=== PATIENT | male | born 1950 | race Two or more races ===

== ENCOUNTER 2021-01-09 14:59 | Emergency (ER) | payer MEDICARE, OTHER ==
[~2021-01-09] VITALS: Ht 165.1 cm; Wt 59.9 kg
[2021-01-09] MEDS ORDERED: SODIUM CHLORIDE 0.9% 500 ML IV ONE (15:30)
[2021-01-09 16:14] LABS: Basophils # (auto) 0.1 10 ^3/uL (0-0.2); Basophils % (auto) 1.6 % (0.0-2.0); Eosinophils # (auto) 0.4 10 ^3/uL (0-0.8); Eosinophils % (auto) 4.8 % (0.0-7.0); Hematocrit 30.6 % (41.0-53.0); Hemoglobin 9.8 g/dL (13.5-17.5); Lymphocytes # (auto) 1.2 10 ^3/uL (0.4-5.4); Lymphocytes % (auto) 16.8 % (10.0-50.0); Mean Corpuscular Hemoglobin 28.8 pg (28.0-32.0); Mean Corpuscular Hgb Conc. 31.9 g/dL (32.0-36.0); Mean Corpuscular Volume 90.3 fL (80.0-100.0); Monocytes # (auto) 0.7 10 ^3/uL (0-1.3); Monocytes % (auto) 10.1 % (0.0-12.0); Neutrophils # (auto) 4.9 10 ^3/uL (1.6-8.6); Neutrophils % (auto) 66.7 % (37.0-80.0); Nucleated Red Blood Cells % 0.1 %; Red Blood Cells 3.39 10^6/uL (4.5-5.90); Red Cell Distribution Width 17.6 % (11.8-14.3); White Blood Cell 7.4 10^3/uL (4.4-10.8)
[2021-01-09 16:22] LABS: Albumin 3.5 g/dL (3.4-5.0); Calcium 8.7 mg/dL (8.5-10.1); Potassium 3.8 mmol/L (3.5-5.1)
[2021-01-09 16:25] LABS: BUN/Creatinine Ratio 15.8; Bilirubin, Total 0.2 mg/dL (0.2-1.0); Total Protein 7.7 g/dL (6.4-8.2)
[2021-01-09 23:13] VITALS: BP 161/77
[2021-01-09] MEDS ORDERED: cloNIDine HCL 0.1 MG TAB PO ONE (23:15)
== END 2021-01-09 23:51 | disposition home or self-care (01) ==
LOC: ER 14:59
DX: D64.9 Anemia, unspecified (principal); R53.1 Weakness; I10 Essential (primary) hypertension; F12.10 Cannabis abuse, uncomplicated; Z20.822 Contact with and (suspected) exposure to COVID-19
CPT/HCPCS: 36415; 71045; 80053; 84484; 85025; 87426; 93005

== ENCOUNTER 2021-09-07 14:11 | Inpatient (IN) | payer MEDICARE ==
[~2021-09-07] VITALS: Ht 167.6 cm; Wt 61.6 kg
[2021-09-07 16:39] LABS: Basophils # (auto) 0.2 10 ^3/uL (0-0.2); Eosinophils # (auto) 0.2 10 ^3/uL (0-0.8); Mean Corpuscular Hemoglobin 25.5 pg (28.0-32.0); Mean Corpuscular Hgb Conc. 30.7 g/dL (32.0-36.0); Neutrophils # (auto) 12.9 10 ^3/uL (1.6-8.6); Neutrophils % (auto) 89.3 % (37.0-80.0)
[2021-09-07 16:41] LABS: Basophils % (auto) 1.2 % (0.0-2.0); Eosinophils % (auto) 1.2 % (0.0-7.0); Lymphocytes # (auto) 0.5 10 ^3/uL (0.4-5.4); Lymphocytes % (auto) 3.8 % (10.0-50.0); Monocytes # (auto) 0.7 10 ^3/uL (0-1.3); Monocytes % (auto) 4.5 % (0.0-12.0); Red Blood Cells 4.33 10^6/uL (4.5-5.90); Red Cell Distribution Width 21.2 % (11.8-14.3); White Blood Cell 14.4 10^3/uL (4.4-10.8)
[2021-09-07 16:52] LABS: INR 0.98 (0.9-1.15); Partial Thromboplastin Time 28.2 sec (24.6-33.4)
[2021-09-07 16:55] LABS: Albumin 3.6 g/dL (3.4-5.0); Anion Gap 7 (5-15); Blood Alcohol < 3.0 mg/dL (0-5); Blood Urea Nitrogen 27 mg/dL (7-18); Carbon Dioxide 24 mmol/L (21-32); Chloride 114 mmol/L (98-107); Glucose 128 mg/dL (74-106); Sodium 145 mmol/L (136-145)
[2021-09-07 16:58] LABS: Alanine Aminotransferase 12 U/L (16-61); Alkaline Phosphatase 203 U/L (45-117); Aspartate Aminotransferase 22 U/L (15-37); BUN/Creatinine Ratio 21.1; Bilirubin, Total 0.3 mg/dL (0.2-1.0); GFR African American 71 mL/min; GFR Non-African American 59 mL/min; Total Protein 7.9 g/dL (6.4-8.2)
[2021-09-07] MEDS ORDERED: CLOPIDOGREL BISULFATE 75 MG TAB PO ONE (17:30)
[2021-09-07] MEDS ORDERED: ENOXAPARIN SOD 60 MG/0.6 ML SYRINGE SC ONE (18:45)
[2021-09-07] MEDS ORDERED: LORazepam 2MG/ML-1ML VIAL IV PRN (21:15)
[2021-09-07 21:38] LABS: Cholesterol 177 mg/dL (< 200)
[2021-09-07 21:40] LABS: HDL Cholesterol 46 mg/dL (40-59); LDL Cholesterol 113 mg/dL (< 100); Triglycerides 177 mg/dL (< 150)
[2021-09-07 21:44] LABS: Folate (Folic Acid) 16.43 ng/mL (5.38-24)
[2021-09-07] MEDS ORDERED: ACETAMINOPHEN 325 MG TAB PO PRN (22:15)
[2021-09-07] MEDS ORDERED: DEXTROSE (50%) 50ML SYRG IV PRN (22:15)
[2021-09-07] MEDS ORDERED: ONDANSETRON HCL 4 MG/2 ML VIAL IV PRN (22:15)
[2021-09-07] MEDS ORDERED: NITROGLYCERIN 0.4 MG SL TAB SL PRN (23:45)
[2021-09-07] MEDS ORDERED: MORPHINE SULFATE INJ 2 MG/ml SYRG IV PRN (23:45)
[2021-09-07] MEDS: SODIUM CHLORIDE 0.9% 1,000 ML IV SCH (23:59)
[2021-09-08] MEDS ORDERED: amLODIPine BESYLATE 5 MG TAB PO ONE (02:30)
[2021-09-08] MEDS ORDERED: hydrALAZINE HCL 20 MG/ML VL IV PRN (02:30)
[2021-09-08] MEDS ORDERED: AZITHROMYCIN 500MG/ 250ML 250 ML IV ONE (02:30)
[2021-09-08 03:30] VITALS: BP 160/90
[2021-09-08] MEDS: HYDROcodone-ACET 5/325MG TAB PO PRN ×3 (04:05→23:41)
[2021-09-08 05:30] VITALS: BP 146/86
[2021-09-08] MEDS: ACCU-CHEK COMFORT CURVE STRIP VI SCH ×4 (07:04→22:31)
[2021-09-08] MEDS: InsuLIN REG 1unit/0.01ml Soln (100units/ml) SC SCH ×4 (07:22→22:00)
[2021-09-08 08:17] LABS: Basophils # (auto) 0.2 10 ^3/uL (0-0.2); Eosinophils # (auto) 0.1 10 ^3/uL (0-0.8); Eosinophils % (auto) 0.5 % (0.0-7.0); Hemoglobin 10.8 g/dL (13.5-17.5)
[2021-09-08 08:20] LABS: Basophils % (auto) 0.7 % (0.0-2.0); Hematocrit 34.5 % (41.0-53.0); Lymphocytes # (auto) 1.7 10 ^3/uL (0.4-5.4); Lymphocytes % (auto) 7.3 % (10.0-50.0); Mean Corpuscular Hemoglobin 25.8 pg (28.0-32.0); Mean Corpuscular Hgb Conc. 31.5 g/dL (32.0-36.0); Monocytes # (auto) 1.2 10 ^3/uL (0-1.3); Monocytes % (auto) 5.2 % (0.0-12.0); Neutrophils # (auto) 20.2 10 ^3/uL (1.6-8.6); Neutrophils % (auto) 86.3 % (37.0-80.0); Nucleated Red Blood Cells % 0.1 %; White Blood Cell 23.4 10^3/uL (4.4-10.8)
[2021-09-08 08:23] LABS: Red Cell Distribution Width 20.8 % (11.8-14.3)
[2021-09-08 08:37] LABS: Albumin 3.4 g/dL (3.4-5.0); Calcium 8.7 mg/dL (8.5-10.1); Potassium 4.3 mmol/L (3.5-5.1)
[2021-09-08 08:43] LABS: BUN/Creatinine Ratio 23.7; Bilirubin, Total 0.4 mg/dL (0.2-1.0); Total Protein 7.8 g/dL (6.4-8.2)
[2021-09-08 08:55] VITALS: BP 145/105
[2021-09-08] MEDS ORDERED: ATORVASTATIN 20 MG TAB PO SCH (10:00)
[2021-09-08] MEDS ORDERED: ASPirin 81 mg TAB PO SCH (10:00)
[2021-09-08] MEDS ORDERED: HALOPERIDOL LACTATE 5 MG/ML INJ VIAL IM ONE (10:30)
[2021-09-08 10:41] LABS: Free T3 2.47 pg/mL (2.3-4.2); Free T4 (Free Thyroxine) 1.1 ng/dL (0.89-1.76)
[2021-09-08] MEDS ORDERED: HALOPERIDOL LACTATE 5 MG/ML INJ VIAL IM STA (11:13)
[2021-09-08] MEDS: AZITHROMYCIN 500MG/ 250ML 250 ML IV SCH (11:26)
[2021-09-08] MEDS: FAMOTIDINE (10MG/ML) 2ML VL IV SCH (11:26)
[2021-09-08] MEDS: ASPirin 81 mg TAB PO SCH (11:27)
[2021-09-08] MEDS: amLODIPine BESYLATE 5 MG TAB PO SCH (11:28)
[2021-09-08] MEDS: HEPARIN SODIUM (PORCINE) 5000 UNITS/ML 1ML VIAL SC SCH ×2 (11:28→22:22)
[2021-09-08] MEDS: METOPROLOL TARTRATE 50 MG TAB PO SCH ×2 (11:29→22:31)
[2021-09-08 13:00] VITALS: BP 129/67
[2021-09-08] MEDS ORDERED: cefTRIAXone 1GM/50ML D5W 50 ML IV ONE (13:15)
[2021-09-08] MEDS: SODIUM CHLORIDE 0.9% 1,000 ML IV SCH (14:55)
[2021-09-08] MEDS: HALOPERIDOL LACTATE 5 MG/ML INJ VIAL IM PRN (17:44)
[2021-09-08 22:00] VITALS: BP 107/53
[2021-09-08] MEDS: ATORVASTATIN 20 MG TAB PO SCH (22:09)
[2021-09-09 05:00] VITALS: BP 118/63
[2021-09-09] MEDS: SODIUM CHLORIDE 0.9% 1,000 ML IV SCH (05:55)
[2021-09-09] MEDS: InsuLIN REG 1unit/0.01ml Soln (100units/ml) SC SCH ×4 (05:55→23:05)
[2021-09-09] MEDS: ACCU-CHEK COMFORT CURVE STRIP VI SCH ×4 (05:55→22:48)
[2021-09-09] MEDS: cefTRIAXone 1GM/50ML D5W 50 ML IV SCH (09:00)
[2021-09-09 09:03] VITALS: BP 125/69
[2021-09-09] MEDS: FAMOTIDINE (10MG/ML) 2ML VL IV SCH (10:08)
[2021-09-09] MEDS: ASPirin 81 mg TAB PO SCH (10:09)
[2021-09-09] MEDS: METOPROLOL TARTRATE 50 MG TAB PO SCH ×2 (10:09→22:54)
[2021-09-09] MEDS: amLODIPine BESYLATE 5 MG TAB PO SCH (10:10)
[2021-09-09] MEDS: HEPARIN SODIUM (PORCINE) 5000 UNITS/ML 1ML VIAL SC SCH ×2 (10:21→22:55)
[2021-09-09] MEDS: DOCUSATE SOD 100 MG CAP PO PRN (10:32)
[2021-09-09] MEDS: HYDROcodone-ACET 5/325MG TAB PO PRN ×4 (10:32→23:47)
[2021-09-09] MEDS: AZITHROMYCIN 500MG/ 250ML 250 ML IV SCH (10:49)
[2021-09-09 13:00] VITALS: BP 112/69
[2021-09-09 13:28] LABS: Urine Bacteria NONE SEEN /hpf (None Seen); Urine Blood Negative /uL (Negative); Urine Mucus FEW (None Seen); Urine Specific Gravity 1.028 (1.001-1.035); Urine WBC 3 /hpf (0 - 3)
[2021-09-09] MEDS ORDERED: IOHEXOL 350 MG/ML 100ML IJ ONE (15:56)
[2021-09-09 17:14] VITALS: BP 107/66
[2021-09-09 22:00] VITALS: BP 119/73
[2021-09-09] MEDS: ATORVASTATIN 20 MG TAB PO SCH (22:54)
[2021-09-10] MEDS: HYDROcodone-ACET 5/325MG TAB PO PRN ×4 (04:17→19:56)
[2021-09-10] MEDS: SODIUM CHLORIDE 0.9% 1,000 ML IV SCH ×3 (04:17→18:13)
[2021-09-10 05:07] VITALS: BP 129/82
[2021-09-10] MEDS: ACCU-CHEK COMFORT CURVE STRIP VI SCH ×4 (05:57→21:32)
[2021-09-10] MEDS: InsuLIN REG 1unit/0.01ml Soln (100units/ml) SC SCH ×4 (05:57→21:32)
[2021-09-10 09:05] VITALS: BP 130/80
[2021-09-10] MEDS: cefTRIAXone 1GM/50ML D5W 50 ML IV SCH (09:10)
[2021-09-10] MEDS: AZITHROMYCIN 500MG/ 250ML 250 ML IV SCH (10:43)
[2021-09-10] MEDS: FAMOTIDINE (10MG/ML) 2ML VL IV SCH (10:43)
[2021-09-10] MEDS: ASPirin 81 mg TAB PO SCH (10:43)
[2021-09-10] MEDS: amLODIPine BESYLATE 5 MG TAB PO SCH (10:44)
[2021-09-10] MEDS: METOPROLOL TARTRATE 50 MG TAB PO SCH ×2 (10:44→21:41)
[2021-09-10] MEDS: HEPARIN SODIUM (PORCINE) 5000 UNITS/ML 1ML VIAL SC SCH ×2 (10:53→21:33)
[2021-09-10] MEDS: DOCUSATE SOD 100 MG CAP PO PRN (10:54)
[2021-09-10 13:00] VITALS: BP 115/71
[2021-09-10 16:47] VITALS: BP 127/78
[2021-09-10 21:19] VITALS: BP 129/83
[2021-09-10] MEDS: ATORVASTATIN 20 MG TAB PO SCH (21:32)
[2021-09-11] MEDS: SODIUM CHLORIDE 0.9% 1,000 ML IV SCH (00:08)
[2021-09-11] MEDS: HYDROcodone-ACET 5/325MG TAB PO PRN ×2 (00:11→06:04)
[2021-09-11 05:02] VITALS: BP 119/74
[2021-09-11] MEDS: InsuLIN REG 1unit/0.01ml Soln (100units/ml) SC SCH ×4 (06:03→22:00)
[2021-09-11] MEDS: ACCU-CHEK COMFORT CURVE STRIP VI SCH ×4 (06:03→22:17)
[2021-09-11 06:49] LABS: Hematocrit 28.5 % (41.0-53.0); Hemoglobin 9.3 g/dL (13.5-17.5); Mean Corpuscular Hemoglobin 26.9 pg (28.0-32.0); Mean Corpuscular Hgb Conc. 32.5 g/dL (32.0-36.0); Red Blood Cells 3.44 10^6/uL (4.5-5.90); White Blood Cell 8.6 10^3/uL (4.4-10.8)
[2021-09-11 06:53] LABS: Red Cell Distribution Width 20.7 % (11.8-14.3)
[2021-09-11 06:55] LABS: Basophils % (manual) 0 (0.0-2.0); Blast Cells 0; Eosinophils % (manual) 0 (0-7); Metamyelocytes % 0; Promyelocytes % 0; Reactive Lymphocytes 0
[2021-09-11 08:19] LABS: Band Neutrophils % (manual) 1; Lymphocytes % (manual) 24 (10.0-50.0); Monocytes % (manual) 7 (0-12); Myelocytes % 1
[2021-09-11 09:00] VITALS: BP 120/70
[2021-09-11] MEDS: AZITHROMYCIN 500MG/ 250ML 250 ML IV SCH (09:24)
[2021-09-11] MEDS: cefTRIAXone 1GM/50ML D5W 50 ML IV SCH (09:24)
[2021-09-11] MEDS: METOPROLOL TARTRATE 50 MG TAB PO SCH ×2 (09:25→22:15)
[2021-09-11] MEDS: amLODIPine BESYLATE 5 MG TAB PO SCH (09:25)
[2021-09-11] MEDS: ASPirin 81 mg TAB PO SCH (09:25)
[2021-09-11] MEDS: HEPARIN SODIUM (PORCINE) 5000 UNITS/ML 1ML VIAL SC SCH ×2 (09:28→22:17)
[2021-09-11] MEDS: FAMOTIDINE (10MG/ML) 2ML VL IV SCH (10:00)
[2021-09-11 13:00] VITALS: BP 126/73
[2021-09-11 17:00] VITALS: BP 108/47
[2021-09-11 21:40] VITALS: BP 141/71
[2021-09-11] MEDS: ATORVASTATIN 20 MG TAB PO SCH (22:14)
[2021-09-12 05:00] VITALS: BP 143/84
[2021-09-12] MEDS: SODIUM CHLORIDE 0.9% 1,000 ML IV SCH ×2 (05:42→16:56)
[2021-09-12] MEDS: InsuLIN REG 1unit/0.01ml Soln (100units/ml) SC SCH ×4 (06:15→22:28)
[2021-09-12] MEDS: ACCU-CHEK COMFORT CURVE STRIP VI SCH ×4 (06:15→22:30)
[2021-09-12 08:00] VITALS: BP 159/87
[2021-09-12] MEDS: cefTRIAXone 1GM/50ML D5W 50 ML IV SCH (09:03)
[2021-09-12] MEDS: AZITHROMYCIN 500MG/ 250ML 250 ML IV SCH (09:03)
[2021-09-12] MEDS: amLODIPine BESYLATE 5 MG TAB PO SCH (09:04)
[2021-09-12] MEDS: METOPROLOL TARTRATE 50 MG TAB PO SCH ×2 (09:04→22:30)
[2021-09-12] MEDS: ASPirin 81 mg TAB PO SCH (09:04)
[2021-09-12] MEDS: HEPARIN SODIUM (PORCINE) 5000 UNITS/ML 1ML VIAL SC SCH ×2 (09:12→22:28)
[2021-09-12 12:21] VITALS: BP 141/79
[2021-09-12 16:32] VITALS: BP 142/73
[2021-09-12 22:00] VITALS: BP 138/71
[2021-09-12] MEDS: ATORVASTATIN 20 MG TAB PO SCH (22:29)
[2021-09-13] MEDS: HYDROcodone-ACET 5/325MG TAB PO PRN (02:29)
[2021-09-13 05:00] VITALS: BP 133/77
[2021-09-13 06:40] LABS: Albumin 3.5 g/dL (3.4-5.0); BUN/Creatinine Ratio 22.2; Calcium 8.9 mg/dL (8.5-10.1); Potassium 3.8 mmol/L (3.5-5.1)
[2021-09-13 06:42] LABS: Hemoglobin 10.7 g/dL (13.5-17.5)
[2021-09-13 06:43] LABS: Bilirubin, Total 0.2 mg/dL (0.2-1.0); Total Protein 7.5 g/dL (6.4-8.2)
[2021-09-13 06:44] LABS: Hematocrit 33.7 % (41.0-53.0); Mean Corpuscular Hgb Conc. 31.9 g/dL (32.0-36.0); Mean Corpuscular Volume 81.6 fL (80.0-100.0); Red Blood Cells 4.13 10^6/uL (4.5-5.90); Red Cell Distribution Width 20.5 % (11.8-14.3); White Blood Cell 15.9 10^3/uL (4.4-10.8)
[2021-09-13] MEDS: ACCU-CHEK COMFORT CURVE STRIP VI SCH ×4 (06:55→22:12)
[2021-09-13] MEDS: InsuLIN REG 1unit/0.01ml Soln (100units/ml) SC SCH ×4 (06:56→22:12)
[2021-09-13 07:02] LABS: Basophils % (manual) 0 (0.0-2.0); Blast Cells 0; Promyelocytes % 0; Reactive Lymphocytes 0
[2021-09-13 09:00] VITALS: BP 136/81
[2021-09-13] MEDS: ASPirin 81 mg TAB PO SCH (09:13)
[2021-09-13] MEDS: cefTRIAXone 1GM/50ML D5W 50 ML IV SCH (09:13)
[2021-09-13] MEDS: METOPROLOL TARTRATE 50 MG TAB PO SCH ×2 (09:14→22:11)
[2021-09-13] MEDS: amLODIPine BESYLATE 5 MG TAB PO SCH (09:14)
[2021-09-13 09:22] LABS: Band Neutrophils % (manual) 4; Eosinophils % (manual) 1 (0-7); Lymphocytes % (manual) 5 (10.0-50.0); Metamyelocytes % 1; Monocytes % (manual) 9 (0-12); Myelocytes % 4
[2021-09-13] MEDS: HEPARIN SODIUM (PORCINE) 5000 UNITS/ML 1ML VIAL SC SCH ×2 (09:22→22:13)
[2021-09-13 13:00] VITALS: BP 127/80
[2021-09-13 14:23] VITALS: BP_SYST 131; BP_SYST 99; BP_DIAS 60; BP_DIAS 74
[2021-09-13 20:00] VITALS: BP 136/81
[2021-09-13 21:44] VITALS: BP 136/71
[2021-09-13] MEDS: ATORVASTATIN 20 MG TAB PO SCH (22:00)
[2021-09-13] MEDS: HALOPERIDOL LACTATE 5 MG/ML INJ VIAL IM PRN (22:14)
[2021-09-14 04:48] VITALS: BP 126/70
[2021-09-14] MEDS: InsuLIN REG 1unit/0.01ml Soln (100units/ml) SC SCH ×3 (05:41→16:59)
[2021-09-14] MEDS: ACCU-CHEK COMFORT CURVE STRIP VI SCH ×3 (05:42→16:59)
[2021-09-14] MEDS: HYDROcodone-ACET 5/325MG TAB PO PRN (05:43)
[2021-09-14 08:00] VITALS: BP 114/69
[2021-09-14] MEDS: amLODIPine BESYLATE 5 MG TAB PO SCH (09:33)
[2021-09-14] MEDS: ASPirin 81 mg TAB PO SCH (09:34)
[2021-09-14] MEDS: METOPROLOL TARTRATE 50 MG TAB PO SCH (09:34)
[2021-09-14] MEDS: cefTRIAXone 1GM/50ML D5W 50 ML IV SCH (09:35)
[2021-09-14] MEDS: HEPARIN SODIUM (PORCINE) 5000 UNITS/ML 1ML VIAL SC SCH (09:42)
[2021-09-14 12:44] VITALS: BP 99/60
[2021-09-14 16:30] VITALS: BP 112/65
== END 2021-09-14 19:08 | disposition hospice, home (50) | DRG 720 ==
LOC: EDUNIT# 14:11 → ER 14:11 → EDBD 14:11 → TELE 23:42 → TELE-WESTW 09-08 03:03
PROVIDERS: ADMIT Nurse Practitioner Family; ATTEND Internal Medicine
DX: A41.9 Sepsis, unspecified organism (principal); G93.41 Metabolic encephalopathy; J18.9 Pneumonia, unspecified organism; F03.90 Unspecified dementia, unspecified severity, without behavioral disturbance, psychotic disturbance, mood disturbance, and anxiety; G95.9 Disease of spinal cord, unspecified; Z79.84 Long term (current) use of oral hypoglycemic drugs; I16.1 Hypertensive emergency; N28.9 Disorder of kidney and ureter, unspecified; Z20.822 Contact with and (suspected) exposure to COVID-19; E11.9 Type 2 diabetes mellitus without complications; E78.00 Pure hypercholesterolemia, unspecified; F17.200 Nicotine dependence, unspecified, uncomplicated; I10 Essential (primary) hypertension; Z79.82 Long term (current) use of aspirin; Z79.899 Other long term (current) drug therapy; Z82.49 Family history of ischemic heart disease and other diseases of the circulatory system; Z83.3 Family history of diabetes mellitus; Z85.46 Personal history of malignant neoplasm of prostate; Z86.73 Personal history of transient ischemic attack (TIA), and cerebral infarction without residual deficits
CPT/HCPCS: 36415; 70450; 70551; 71045; 71275; 73501; 80053; 80061; 80320; 81001; 82607; 82746; 82962; 83036; 84154; 84439; 84443; 84481; 84484; 85007; 85025; 85027; 85379; 85610; 85730; 87040; 87086; 93005; 93306; 93886; 93970; 95819; 96372; 99291; G0378; J0696; J1815; J3490